=== PATIENT | male | born 1950 | race Caucasian/White ===

== ENCOUNTER 2018-11-09 14:18 | Inpatient (IN) ==
[2018-11-09] MEDS ORDERED: ZOFRAN IV ONE (15:13)
[2018-11-09] MEDS ORDERED: NS 1,000 ML IV ONE (15:13)
[2018-11-09] MEDS ORDERED: DILAUDID IV ONE (15:47)
--- NOTE | 2018-11-09 16:08 | PROVIDER DOCUMENTATION ---
HPI-General Adult - General Chief Complaint: Abdominal Pain Stated Complaint: ABD PAIN/RT SIDE Time Seen by Provider: 11/09/18 15:12 Source: patient Allergies/Adverse Reactions: Patient Allergies Allergy/AdvReac Type Severity Reaction Status Date / Time No Known Allergies Allergy Verified 11/09/18 17:26 Home Medications: Home Medication List Medication Instructions Recorded Confirmed Last Taken Type ATORVAstatin [Lipitor] 40 mg PO QHS 10/23/18 11/09/18 10/24/18 21:00 History Ezetimibe [Zetia] 10 mg PO DAILY 10/23/18 11/09/18 10/24/18 08:00 History Omeprazole 40 mg PO DAILY 10/23/18 11/09/18 10/25/18 06:00 History Potassium Chloride E.r. [Klor-Con] 20 meq PO DAILY 10/23/18 11/09/18 10/24/18 08 :00 History Valsartan/Hydrochlorothiazide 1 each PO DAILY 10/23/18 11/09/18 10/24/18 08:00 History [Diovan Hct 160-25 mg Tablet] Hydrocodone/Acetaminophen [Basin 1 each PO Q4H PRN PRN #30 tablet 10/25/1811/09 Unknown Rx 10-325 Tablet] - History of Present Illness -Gen Adult Nature of Presenting Problems: Pt. is 68 yom that presents with c/o epigastric pain radiating to the right upper quadrant. He reports pain upon waking this morning. Pt. states he has a known GB issue but it hasn't been removed yet. He states some nausea but denies any other symptoms. Location of Pain/Injury: reports: abdomen. denies: none, head, face, mouth, neck, chest, upper extremity, hand(s), back, pelvis, genitalia, lower extremity , feet, upper body, lower body, generalized, other Pain Radiation: reports: epigastric, RUQ. denies: no radiation, arm(s), back, buttocks, chest, feet, groin, jaw, flank (L), legs (lower), LLQ, LUQ, neck, periumbilical, flank (R), RLQ, shoulder(s), scapula, scrotal, sternal notch, suprapubic, legs (upper), urethral, vaginal, other Quality of Pain: reports: aching. denies: burning, cramping, pressure, sharp, throbbing, tightness Severity: reports: moderate. denies: mild, severe Onset/Duration: reports: abrupt, this morning Timing: reports: still present. denies: improving, gone now, constant, getting worse Context/Activities at Onset: reports: none. denies: light activity, moderate activity, vigorous activity, recent emotional stress, recent physical stress, recent trauma history, possible bad food, cold exposure, eating, out of country travel, rest, sleep, sexual activity, other Modifying Factors: improves with: nothing Associated Symptoms: reports: nausea, vomiting. denies: denies symptoms, anxiety, arm pain, back/neck pain, chest pain, constipation, cough, diaphoresis , diarrhea, dizziness, EENT symptoms, fatigue, fever/chills, genitourinary problems, headaches, heartburn, joint pain, loss of appetite, malaise, muscle aches, sinus congestion/drainage, rash, seizure, shortness of breath, sensory/ motor loss, pain with inspiration, swelling/mass in abdomen, syncope, weakness, trouble walking, other Similar Symptoms Previously?: Yes Recently seen or treated by another doctor?: No Review of Systems - Adult - REVIEW OF SYSTEMS - ADULT Constitutional: reports: no symptoms reported Eyes: reports: no symptoms reported Ears, Nose, Mouth & Throat: reports: no symptoms reported Cardiovascular: reports: no symptoms reported Respiratory: reports: no symptoms reported Gastrointestinal: reports: see HPI, abdominal pain, nausea. denies: constipation, diarrhea, frequent heartburn, vomiting Genitourinary: reports: no symptoms reported Musculoskeletal: reports: no symptoms reported Integumentary: reports: no symptoms reported Neurological: reports: no symptoms reported Psychiatric: reports: no symptoms reported Past History - Adult - PAST MEDICAL HISTORY-ADULT Review of Records: reports: Old Records Reviewed, Nursing Assessment Review, Medications Reviewed, Social history reviewed & non-contributory. Major Childhood Illnesses: reports: denies history Cardiovascular: reports: denies history Respiratory: reports: denies history Gastrointestinal: reports: denies history Obstetrical/Gynecological: reports: denies history Genitourinary: reports: denies history Musculoskeletal: reports: denies history Neurological: reports: denies history Endocrine/Immune: reports: denies history Other Conditions: reports: denies history - IMMUNIZATION STATUS Childhood Immunizations: See Nurse Assessment Flu Vaccine: See Nurse Assessment - FAMILY HISTORY Family History: reviewed, not pertinent - SOCIAL HISTORY Smoking: non-smoker Physical Exam-General - PHYSICAL EXAM-ADULT Initial Vital Signs Reviewed: Yes - CONSTITUTIONAL General Appearance: alert, moderate distress. negative: anxious, slow to respond, obtunded, combative - EYES Eyes: PERRL/EOMI, pink conjunctivae. negative: conjuctival exudate, scleral icterus, subconjunctival hemorrhage - HEAD, EARS, NOSE, MOUTH & THROAT HENMT: normocephalic/atraumatic, moist mucous membranes. negative: angioedema, frontal tenderness, maxillary tenderness - NECK Neck: non-tender, full range of motion, supple. negative: lymphadenopathy, trachial deviation, thyromegaly - RESPIRATORY Respiratory: lungs clear, normal breath sounds. negative: crackles, rales, rhonchi, stridor, wheezing - CARDIOVASCULAR Cardiovascular: normal peripheral pulses, regular rate, rhythm, no edema. negative: extra beats, friction rub, irregularly irregular - GASTROINTESTINAL (ABDOMEN) Abdominal Exam: normal bowel sounds, guarding, tenderness. negative: rigid, rebound, hernia, mass - LYMPHATIC Lymphatic: no adenopathy. negative: axilla node tender, cervical node tenderness - MUSCULOSKELETAL Back Exam: normal inspection, no CVA tenderness, no vertebral tenderness. negative: decreased range of motion, swelling, vertebral tenderness Extremity: normal range of motion, non-tender, normal gait, normal inspection. negative: deformity, erythema, inflammation, swelling, tenderness Peripheral Pulses: radial (R): 2+, radial (L): 2+ - SKIN Integumentary: normal color, normal turgor, diaphoresis. negative: cyanosis, decubitus, erythema, jaundice, pallor, warm - NEUROLOGIC Neurologic: grossly normal, no motor/sensory deficits. negative: aphasia, facial droop, focal weakness, motor weakness, sensory deficit - PSYCHIATRIC Psych/Mental Status: normal mood/affect, normal thought content, normal thought process, oriented x 3. negative: anxious, paranoid, tearful Progress - PLAN OF CARE/RESULTS Progress/Plan/Lab Results: Vital Signs - 8 hr 11/09/18 15:17 Temperature 98.0 F Pulse Rate 74 Respiratory Rate 22 Blood Pressure 158/78 O2 Sat by Pulse Oximetry 96 Orders Category Date Time Status Saline Loc NOW Care 11/09/18 15:13 Active US GB < RUQ (LIMITED) [US] Stat Exams 11/09/18 15:14 Ordered CBC WITH ELECTRONIC DIFF [HEME] Stat Lab 11/09/18 15:13 Uncollected COMPREHENSIVE METABOLIC PANEL [CHEM] Stat Lab 11/09/18 15:13 Uncollected LIPASE [CHEM] Stat Lab 11/09/18 15:13 Uncollected URINALYSIS W/POSS RFLX CULT [URINALYSIS] Stat Lab 11/09/18 15:09 Uncollected 0.9% Sodium Chloride Inj [Ns] 1,000 ml Med 11/09/18 15:13 Active IV 999 mls/hr Hydromorphone [Dilaudid] Med 11/09/18 15:47 Discontinued 1 mg IV NOW ONE Ondansetron [Zofran] Med 11/09/18 15:13 Discontinued 4 mg IV NOW ONE Laboratory Tests 11/09/18 11/09/18 11/09/18 18:10 18:10 20:13 WBC 16.67 H RBC 4.96 Hgb 14.2 Hct 43.5 MCV 87.7 MCH 28.6 MCHC 32.6 L RDW Std Deviation 12.8 Plt Count 388 MPV 8.9 Immature Gran % (Auto) 0.1 Neut % (Auto) 93.3 H Lymph % (Auto) 3.4 L [place] % (Auto) 3.1 Eos % (Auto) 0.0 Baso % (Auto) 0.1 Immature Gran # (Auto) 0.02 Neut # (Auto) 15.56 H Lymph # (Auto) 0.56 L [place] # (Auto) 0.52 Eos # (Auto) 0.00 Baso # (Auto) 0.01 Sodium 138 Potassium 4.3 Chloride 99 Carbon Dioxide 26 Anion Gap 13 BUN 22 Creatinine 1.0 Estimated GFR/1.73 m2 > 60 BUN/Creatinine Ratio 22 Glucose 120 H Calculated Osmolality 280 Calcium 9.7 Total Bilirubin 0.59 AST 124 H ALT 149 H Alkaline Phosphatase 155 H Total Protein 7.4 Albumin 4.5 Globulin 2.9 Albumin/Globulin Ratio 1.6 Lipase > 3000 H Urine Source CLEAN CATCH Urine Color YELLOW Urine Turbidity TURBID Urine pH 5.5 Ur Specific [place] 1.033 Urine Protein 50 A Ur Glucose (Stick) 200 A Ur Ketones (Stick) NEGATIVE Urine Blood NEGATIVE Urine Nitrite NEGATIVE Urine Bilirubin SMALL A Urobilinogen Dipstick 2 A Urine Leukocytes NEGATIVE Urine WBC (Auto) <10 Urine RBC (Auto) <10 U Epithel Cells (Auto) <10 Urine Bacteria (Auto) NEGATIVE Discussed results and plan of care with patient. Patient agrees with plan and verbalizes understanding. Result Diagrams: 11/10/18 06:57 11/10/18 06:57 - REASSESSMENT Reassessment #1 Time Reassessed: 18:15 Status: unchanged (Patient still c/o abdominal pain, epigastric, vomited once. tenderness epigastric and RUQ. willm give toradol and do CT without contrast ( no IV yet after multiple try)) Reassessment #2 Time Reassessed: 19:10 Status: improving (Patint feels better, less abd pain 2-3/10) Reassessment #3 Time Reassessed: 21:08 Status: other (Accepted by Dr. Dilshad Hoang for admission. Acute pancreatitis) - CHANGE OF SHIFT REPORT (ED Provider) Report Given and Care Transferred to:: Dr. Hoang Time of Transfer: 17:42 Items Pending: Labs, Ultrasound Results Departure - Departure Date of Disposition Decision: 11/09/18 Time of Disposition Decision: 21:08 DIAGNOSIS: Acute pancreatitis Qualifiers: Pancreatitis type: biliary Acute pancreatitis complication: unspecified Qualified Code(s): K85.10 - Biliary acute pancreatitis without necrosis or infection Disposition: ADMITTED INPATIENT 09 Certified Medical Emergency: Emergent Condition: Stable - Critical Care Note This patient required my direct & personal management of CC.: No Attestation - Physician/ ATUL Attestation Patient care was provided by Advanced Practice Provider:: Yes Advanced Practice Provider:: Kanu Avila Advanced Practice Provider documentation review:: The Mid-level provider documentation, treatment plan and medical decision making was reviewed by the physician who agrees with all treatment and medical decision making by the MLP. The physician spent face to face time with patient:: No Advanced Practice Provider documentation review:: Supervising physician onsite and consulted in the evaluation and care of this patient. The physician did not have a face to face encounter with the patient.
[2018-11-09] MEDS ORDERED: DILAUDID IM STA (17:09)
[2018-11-09] MEDS ORDERED: PHENERGAN IM ONE (17:09)
[2018-11-09] MEDS ORDERED: TORADOL IM ONE (17:54)
--- NOTE | 2018-11-09 18:52 | Diag Imaging Result Doc PS360 ---
EXAM: CT ABDOMEN/PELVIS W/O CONTRAST 11/09/2018 HISTORY: severe abdominal pain RT FLANK, RUQ, GUARDING. TECHNIQUE: This exam was performed using automated exposure control, adjustment of mA or kV according to patient size, and/or use of iterative reconstruction technique. COMMENT: There are no previous abdominal studies. Comparison of the pelvis is made with the pelvic CT of 10/28/2016. There are some mild atelectatic or fibrotic changes in the lung bases including the lower lingula. There is minimal increased density in the peripancreatic fat suggesting interstitial pancreatitis. There are small densely calcified gallstones layering dependently in the gallbladder. There is no evidence of biliary dilatation. There is no evidence of hydronephrosis or stones in the kidneys. The adrenal glands and spleen are not enlarged. There is some stool in the colon. There is no evidence of bowel obstruction or appendicitis. There is a collection of soft tissue density subadjacent to the umbilicus. This may be a result of repair of an umbilical hernia. It is likely a seroma and/or hematoma. It measures less than 4 cm in diameter. The aorta is not distended. There is no evidence of significant adenopathy. There is diverticulosis in the distal descending colon. No evidence of active diverticulitis is present. There is a left inguinal hernia containing a loop of small bowel. There is fluid within the hernia sac and there does appear to be a fat fluid level in the upper portion of the scrotum. There is a hydrocele. The proximal loop entering the hernia sac contains fecalized contents and is slightly distended. This was not present at the time the previous study of 10/29/2016. There has been internal fixation of the anterior pelvic ring. There is a threaded ely passing through the sacroiliac joints and sacrum. IMPRESSION: 1. Recurrent left inguinal hernia. 2. Mild pancreatitis. 3. Bibasilar subsegmental atelectasis. Electronically signed by Rachid Menezes 11/09/2018 6:50 PM
--- NOTE | 2018-11-09 19:08 | Diag Imaging Result Doc PS360 ---
EXAM: US GB < RUQ (LIMITED) 11/09/2018 HISTORY: RUQ pain TECHNIQUE: Right upper quadrant ultrasound. COMMENT: The pancreas is obscured. The liver is unremarkable in appearance. There is antegrade flow in the portal vein. The gallbladder is not distended. There are apparent small stones layering dependently in the gallbladder with shadowing, as recently reported on CT. There is no sonographic Collazo sign. The visualized portions of the aorta and inferior vena cava are within normal limits. There is no evidence of biliary dilatation with common bile duct measuring less than 6 mm. The right kidney is without evidence of hydronephrosis or mass. There are no abnormal fluid collections. IMPRESSION: Cholelithiasis. Electronically signed by Rachid Menezes 11/09/2018 7:06 PM
[2018-11-09 20:15] LABS: BASO# 0.01 X1000 (0.0-0.2); BASO% 0.1 % (0.0-0.8); HEMATOCRIT 43.5 % (42.0-52.0); HEMOGLOBIN 14.2 g/dL (14.0-18.0); IMM GRAN# 0.02 X1000 (0.0-0.04); IMM GRAN% 0.1 % (0.0-0.5); LYMPH# 0.56 X1000 (1.2-3.4); LYMPH% 3.4 % (20.5-51.1); MCH 28.6 PG (27-31); MCHC 32.6 g/dL (33-37); MCV 87.7 FL (81-99); MONO# 0.52 X1000 (0.11-0.59); MONO% 3.1 % (1.7-9.3); MPV 8.9 FL (7.4-10.4); NEUT# 15.56 X1000 (1.4-6.5); NEUT% 93.3 % (42.2-75.2); PLT 388 X1000 (130-400); RBC 4.96 XMIL (4.7-6.1); RDW 12.8 % (11.5-14.5); WBC 16.67 X1000 (4.8-10.8)
[2018-11-09 20:23] LABS: URINE SOURCE CLEAN CATCH
[2018-11-09 20:39] LABS: BILIRUBIN URINE SMALL (NEGATIVE); BLOOD URINE NEGATIVE (NEGATIVE); COLOR YELLOW; GLUCOSE URINE 200 mg/dL (NEGATIVE); KETONE URINE NEGATIVE (NEGATIVE); LEUKOCYTES URINE NEGATIVE (NEGATIVE); NITRITE URINE NEGATIVE (NEGATIVE); PH URINE 5.5; PROTEIN URINE 50 mg/dL (NEGATIVE); SP GRAVITY URINE 1.033; TURBIDITY URINE TURBID (CLEAR); UROBILINOGEN URINE 2 mg/dL (NORMAL)
[2018-11-09 20:40] LABS: UR EPITHELIAL CELLS <10 /HPF (<10); URINE BACTERIA NEGATIVE /HPF; URINE RBC <10 /HPF (<10); URINE WBC <10 /HPF (<10)
[2018-11-09 20:41] LABS: AGAP 13; ALB/GLOB RATIO 1.6; ALBUMIN 4.5 g/dL (3.5-5.0); ALKALINE PHOSPHATASE 155 U/L (32-122); BUN 22 mg/dL (8-22); CALCIUM 9.7 mg/dL (8.8-10.2); CHLORIDE 99 mmol/L (98-107); COSMO 280; ESTIMATED GFR > 60; GLUCOSE 120 mg/dL (70-104); GOT 124 U/L (10-34); GPT 149 U/L (10-44); POTASSIUM 4.3 mmol/L (3.5-5.1); SODIUM 138 mmol/L (136-145); TCO2 26 mmol/L (25-35); TOTAL BILIRUBIN 0.59 mg/dL (0.20-1.00); TOTAL PROTEIN 7.4 g/dL (6.3-8.3)
[2018-11-09 21:00] LABS: LIPASE > 3000 U/L (13-60)
[2018-11-09] MEDS ORDERED: MORPHINE IV ONE (22:17)
--- NOTE | 2018-11-09 23:49 | HISTORY AND PHYSICAL ---
PRIMARY CARE PHYSICIAN: Dr. Hernandez. CHIEF COMPLAINT: Abdominal pain. HISTORY OF PRESENTING ILLNESS: A 68-year-old male with a history of hypertension, hyperlipidemia and GERD, who had presented to emergency department with a 1-day history of worsening right upper quadrant pain. Patient states the pain was about a 10/10 and he was nauseated. He apparently was seeing Surgery outpatient and was scheduled to have a HIDA scan, but he states that he could not wait. The pain was worsening. He was evaluated the emergency department. He had an ultrasound done which did show cholelithiasis and also he had a CT done which did show pancreatitis with a lipase of over 3000. Due to his presenting symptoms, he will require admission for further management. At the time of my examination, he had denied any headache, fever, chills, chest pain, shortness of breath, hemoptysis or weight changes, but complained of excruciating right upper quadrant pain. PAST MEDICAL HISTORY: Hypertension, hyperlipidemia, GERD. PAST SURGICAL HISTORY: Hernia repair, pelvic reconstructive surgery. ALLERGIES: No known drug allergies. CURRENT MEDICATIONS: Include Diovan HCT 160/25 mg p.o. daily, Mobic 15 mg p.o. daily, Zetia 10 mg p.o. daily, atorvastatin 40 mg p.o. daily, omeprazole 40 mg p.o. daily, KCl ER 20 mg p.o. daily. SOCIAL HISTORY: He denies any history of smoking, alcohol or illicit drug use. FAMILY HISTORY: No history of coronary artery disease. REVIEW OF SYSTEMS: Fourteen point review of systems as listed in HPI. Other systems negative. PHYSICAL EXAMINATION: GENERAL: Cooperative, friendly male. He is resting more comfortably now. VITAL SIGNS: Temperature 98.0 degrees, pulse 74, respirations 22, blood pressure 158/78. HEENT: Atraumatic, normocephalic. Extraocular movements intact. PERRLA. NECK: Supple. CHEST: Clear to auscultation. CARDIOVASCULAR: Regular rate and rhythm. ABDOMEN: Soft. Right upper quadrant tenderness. EXTREMITIES: No edema. NEUROLOGIC: He is awake, alert, oriented x3. GENITOURINARY: No bladder distention. SKIN: Warm. LABORATORIES AND STUDIES: Lipase greater than 3000, AST 124, ALT 149, alkaline phosphatase 155, sodium 138, potassium 4.3, chloride 99, CO2 is 26, BUN is 22, creatinine is 1.0, glucose is 120. WBC 16.67, hemoglobin 14.2 hematocrit 42.5, platelets is 388,000. Abdominal ultrasound shows cholelithiasis. CT shows mild pancreatitis. ASSESSMENT: A 68-year-old male with a history of hypertension, hyperlipidemia and gastroesophageal reflux disease, who presented to emergency department with 1-day history of worsening right upper quadrant pain. He was evaluated in the emergency department. It was suspected he had gallstone pancreatitis. Subsequently, he will need admission for further management. 1. Abdominal pain. 2. Gallstone pancreatitis. 3. Hypertension. 4. Gastroesophageal reflux disease. PLAN: 1. We will admit patient to medical floor with telemetry. 2. We will give patient adequate pain control, antiemetics, IV fluids. 3. We will consult General Surgery. 4. Monitor blood pressure closely. 5. Put patient on DVT prophylaxis with SCDs. 6. Continue to follow, and reassess and make further recommendations based on patient's clinical course. cc: Dilshad Hoang MD
[2018-11-10] MEDS ORDERED: NS 1,000 ML IV SCH (00:22)
[2018-11-10] MEDS ORDERED: SODIUM CHLORIDE 0.9% INJ PRN (00:22)
[2018-11-10] MEDS ORDERED: PHENERGAN IV PRN (00:22)
[2018-11-10] MEDS: DILAUDID IV PRN ×4 (00:39→23:31)
[2018-11-10] MEDS: ZOSYN 3.375 GM in NS 50 ML IV SCH ×4 (00:42→19:54)
[2018-11-10 07:24] LABS: BASO# 0.01 X1000 (0.0-0.2); BASO% 0.1 % (0.0-0.8); EOS# 0.02 X1000 (0.0-0.7); EOS% 0.2 % (0.0-10.0); HEMATOCRIT 38.8 % (42.0-52.0); HEMOGLOBIN 12.6 g/dL (14.0-18.0); IMM GRAN# 0.02 X1000 (0.0-0.04); IMM GRAN% 0.2 % (0.0-0.5); LYMPH# 1.13 X1000 (1.2-3.4); LYMPH% 11.5 % (20.5-51.1); MCH 28.9 PG (27-31); MCHC 32.5 g/dL (33-37); MONO# 0.88 X1000 (0.11-0.59); MPV 9.3 FL (7.4-10.4); NEUT# 7.74 X1000 (1.4-6.5); PLT 312 X1000 (130-400); RBC 4.36 XMIL (4.7-6.1); RDW 12.8 % (11.5-14.5)
[2018-11-10 07:43] LABS: AGAP 10; BUN 26 mg/dL (8-22); CALCIUM 8.8 mg/dL (8.8-10.2); CHLORIDE 103 mmol/L (98-107); COSMO 284; ESTIMATED GFR > 60; GLUCOSE 99 mg/dL (70-104); POTASSIUM 4.5 mmol/L (3.5-5.1); SODIUM 140 mmol/L (136-145); TCO2 27 mmol/L (25-35)
--- NOTE | 2018-11-10 07:44 | GENERAL SURGERY CONSULTATION ---
DATE: 11/10/2018 REQUESTING PHYSICIAN: Leidyist. REASON FOR CONSULTATION: Consult concerning pancreatitis. HISTORY OF PRESENT ILLNESS: A 68-year-old gentleman with a history of hypertension, hyperlipidemia, gastroesophageal reflux disease, who presented to the emergency department with worsening right upper quadrant pain. I had seen him in the office a week ago after a postoperative visit from an incisional hernia down his pelvis and an umbilical hernia repair. Clinically, he was doing well at that time, and was not having any issues. He called my office yesterday, stating he had some right upper quadrant pain. We had scheduled him for a HIDA, but the pain got really severe, so he came into the emergency department. CT scan showed that he did have cholelithiasis and pancreatitis. He likely has a recurrence of this incisional hernia. It was a very difficult hernia to repair down in his groin. Clinically, the patient is doing better now, but still has some right upper quadrant pain. PAST MEDICAL HISTORY: Includes hypertension, hyperlipidemia, and gastroesophageal reflux disease. PAST SURGICAL HISTORY: Includes recent hernia repairs and pelvic reconstruction surgery. ALLERGIES: None. HOME MEDICATIONS: Reviewed. SOCIAL HISTORY: Denies alcohol, tobacco, or illicit drugs. FAMILY HISTORY: Reviewed with patient and noncontributory. REVIEW OF SYSTEMS: A full 10 point review of systems obtained and negative as specified in HPI. PHYSICAL EXAMINATION: Vital Signs: Patient is currently afebrile. His vital signs are stable. General: No acute distress. Alert, interactive, male, looks stated age. HEENT: Normocephalic, atraumatic. Pupils equal, round, reactive to light. Mucous membranes moist. Oropharynx benign. Neck: Supple. Trachea midline. Cardiovascular: Regular rate and rhythm. Lungs: Grossly clear. Abdomen: Soft. Tender to palpation in the right upper quadrant. Some tenderness at his previous incision sites. No recurrence of his umbilical hernia. There is some swelling in his left inguinal region, where he had his incisional hernia. Extremities: Moves all extremities. Neurologic: Grossly intact. Skin: No signs of jaundice. Vascular: All extremities perfused. LABORATORY REVIEWED: CT scan independently reviewed, and Radiology report reviewed. ASSESSMENT AND PLAN: A 68-year-old with pancreatitis in the postoperative state. 1. Pancreatitis. This is likely related to gallstone pancreatitis. The difficulty is these 2 weeks out from umbilical hernia repair and an incisional hernia repair down in his groin. They both contain mesh. Any kind of surgical intervention would be difficult given the fact that he is 2 weeks out, and he has a piece of mesh. He would be high risk for contamination of the mesh, which would need to have removal of the mesh, which again would be difficult at this time. The best scenario might be to keep him NPO, [*] pancreatitis and wait some period of time before pursuing umbilical hernia repair. I discussed this with the patient. He is aware. He needs to remain in the hospital and monitored and kept on NPO. I am not opposed to having him on antibiotics given his leukocytosis. My partner, Dr. Clarke, will follow this weekend and while I am gone next week. 2. Recurrent left inguinal/incisional hernia. At this time, the hernia repair, itself, was very difficult. He had no tissue to sew to. At this time, he has had less pain with and after his hernia repair than he did prior to his hernia repair, so at this point I would just recommend monitoring it. He may need to have a truss to the area. cc: Castillo Soto MD
[2018-11-10] MEDS ORDERED: SODIUM CHLORIDE 0.9% INJ SCH (11:00)
[2018-11-10] MEDS: PROTONIX IV SCH (11:16)
[2018-11-10] MEDS: NS 1,000 ML IV SCH ×2 (11:16→19:54)
--- NOTE | 2018-11-10 11:43 | PROGRESS NOTE ---
DATE: 11/10/2018 SUBJECTIVE: Patient reports still having pain even though he is receiving 1 mg of Dilaudid every 4 hours. Denies any other complaints. OBJECTIVE: Vital Signs: Temperature 98.5 degrees, heart rate 74, respiratory rate 16, blood pressure 123/61, O2 saturation 100% on room air. General: This is a 68-year-old male, lying in bed, in no acute distress. Cardiovascular: S1, S2 heard. No murmurs, gallops, or rubs. Regular rate and rhythm. Respiratory: Clear bilaterally to auscultation. No work of breathing or using accessory muscles. Abdomen: Soft, right upper quadrant tenderness with Collazo negative. Bowel sounds present. No organomegaly. Extremities: No clubbing, cyanosis, or edema. Peripheral pulses present in both legs. Neurological: The patient is alert and oriented x3. Moves 4 extremities. LABORATORY DATA: Reviewed. The white cell count is back to normal at 9.8. ASSESSMENT AND PLAN: 1. Abdominal pain secondary to gallstone pancreatitis. General Surgery has been completed, and they mention that will be technically difficult to do a cholecystectomy considering that he had a hernia repair with mesh around. At this point, they are planning to do conservative management only. In that way, I am going to increase the doses of pain medication because patient is still hurting. We will continue with IV fluids. We will continue to monitor this patient closely and follow recommendations from General Surgery. 2. Hypertension. Blood pressure is under control. We will continue with the same management. 3. Gastroesophageal reflux disease. We will continue with Protonix. 4. Leukocytosis. There has been a suspicious for infection on admission. That is why this patient was started on Zosyn. At this point, we will continue with the same management. 5. Disposition. Following the lead from General Surgery. cc: Gregory Dietrich MD
[2018-11-11] MEDS: ZOSYN 3.375 GM in NS 50 ML IV SCH ×4 (01:32→21:44)
[2018-11-11] MEDS: NS 1,000 ML IV SCH (06:01)
[2018-11-11 07:12] LABS: BASO# 0.02 X1000 (0.0-0.2); BASO% 0.3 % (0.0-0.8); EOS# 0.06 X1000 (0.0-0.7); EOS% 0.8 % (0.0-10.0); HEMATOCRIT 37.5 % (42.0-52.0); HEMOGLOBIN 11.8 g/dL (14.0-18.0); LYMPH# 1.19 X1000 (1.2-3.4); LYMPH% 16.4 % (20.5-51.1); MCH 28.6 PG (27-31); MCHC 31.5 g/dL (33-37); MCV 90.8 FL (81-99); MONO% 8.3 % (1.7-9.3); MPV 8.9 FL (7.4-10.4); NEUT# 5.38 X1000 (1.4-6.5); NEUT% 74.2 % (42.2-75.2); PLT 266 X1000 (130-400); RBC 4.13 XMIL (4.7-6.1); RDW 12.7 % (11.5-14.5); WBC 7.25 X1000 (4.8-10.8)
[2018-11-11 07:27] LABS: C REACTIVE PROT QUANT 114.46 mg/L (0.00-5.00)
[2018-11-11 07:36] LABS: AGAP 14; ALB/GLOB RATIO 1.4; ALBUMIN 3.3 g/dL (3.5-5.0); ALKALINE PHOSPHATASE 102 U/L (32-122); BUN 18 mg/dL (8-22); CALCIUM 8.6 mg/dL (8.8-10.2); CHLORIDE 107 mmol/L (98-107); COSMO 286; CREATININE 0.8 mg/dL (0.7-1.2); ESTIMATED GFR > 60; GLUCOSE 82 mg/dL (70-104); GOT 25 U/L (10-34); GPT 56 U/L (10-44); SODIUM 143 mmol/L (136-145); TCO2 22 mmol/L (25-35); TOTAL BILIRUBIN 0.76 mg/dL (0.20-1.00); TOTAL PROTEIN 5.7 g/dL (6.3-8.3)
[2018-11-11] MEDS ORDERED: LR 1,000 ML IV SCH (08:45)
[2018-11-11] MEDS: DILAUDID IV PRN (09:24)
[2018-11-11] MEDS: LR 1,000 ML IV SCH (09:55)
--- NOTE | 2018-11-11 11:46 | PROGRESS NOTE ---
DATE: 11/11/2018 SUBJECTIVE: Mr. Garrison is admitted with gallstone pancreatitis. He has had several hernia surgeries recently performed per Dr. Soto, which include mesh. He has been treated for his pancreatitis by being n.p.o. and his lipase is quickly dropping. We will give him clear liquids today, increase his activity. We want to be careful about proceeding quickly with cholecystectomy because of his intra-abdominal mesh recently placed. cc: Cecy Clarke MD
[2018-11-11] MEDS: PROTONIX IV SCH (16:24)
[2018-11-11] MEDS ORDERED: TYLENOL PM PO ONE (21:03)
--- NOTE | 2018-11-11 23:15 | PROGRESS NOTE ---
DATE: 11/11/2018 SUBJECTIVE: This morning, Mr. Garrison refers to be doing a lot better. He is saying the abdominal pain has significantly improved. Mr. Garrison got admitted on the , mainly because of abdominal pain and some nauseation. During the workup, it was found that he has gallstone-induced pancreatitis. Of note, Mr. Garrison also had a laparoscopic robot-assisted repair of a recurrent incarcerated incisional hernia with mesh on 10/25/2014, by Dr. Soto. OBJECTIVE: Vital Signs: Blood pressure is 121/65, pulse is 81 respirations 16, temperature is 98.3 degrees. The patient was saturating 97% on room air. General: Mr. Garrison is a 68-year-old male. He is in bed. He is not in any cardiopulmonary distress. HEENT: Mucosa is pink and moist. Anicteric. Acyanotic. Neck: Supple. There was no JVD, no carotid bruit. Cardiovascular: Regular rate and rhythm. There are no murmurs, no rubs, no gallops. Respiratory System: Good air entry bilaterally. No crepitations. No rhonchi. No accessory muscle use. GI: Abdomen is soft. It is minimally tender in the right upper quadrant. There are some healed laparoscopic scars on the anterior abdominal wall. Bowel sounds were present. There is no hepatosplenomegaly. Extremities: No pedal edema. Distal pulses present. : Unremarkable. SUPPLY OFFICER: Patient is awake, alert, oriented. There is no focal neurological deficit. LABORATORY DATA: WBC 7.25, hemoglobin 11.8, platelet count of 266. Chemistry is also reviewed, completely unremarkable, except for bicarb which is 22. AST is down to 25, ALT is down to 56. C- reactive protein is 114. Lipase has almost normalized to 96. Ultrasound of the abdomen did show cholelithiasis. The CBD was [address] scan of the abdomen did show recurrent left inguinal hernia, and there is a mild pancreatitis. ASSESSMENT: 1. Gallstone-induced acute pancreatitis. Lipase is almost normalized. Symptomatology is improving. We will continue with adequate IV hydration and pain management. The patient was NPO, has been started on clear liquids by Surgery. We will continue to observe. If the patient tolerates this, then we will advance that in the morning. 2. Recent repair of recurrent incarcerated incisional hernia with mesh (laparoscopically), with robot-assist by Dr. Soto, noted. 3. Dyslipidemia. We will continue with Zetia and Lipitor. 4. Hypertension. Controlled. PLAN: In general, I think Mr. Garrison is doing fairly okay. He has been evaluated by Surgery. Because of his recent complicated hernia repair, Surgery prefers to hold off on any intra- abdominal surgery again until he is well-healed from the laparoscopic hernia repair. His pancreas numbers seem to be doing a lot better. I think we will be able to treat this more medically at this point, and have the gallbladder removed at a later date. We will follow up with further recommendations from Surgery. cc: Nuno Rodríguez MD
[2018-11-12] MEDS: ZOSYN 3.375 GM in NS 50 ML IV SCH ×2 (02:07→09:04)
[2018-11-12] MEDS: LR 1,000 ML IV SCH (06:22)
[2018-11-12 07:38] LABS: BASO# 0.02 X1000 (0.0-0.2); BASO% 0.3 % (0.0-0.8); EOS# 0.21 X1000 (0.0-0.7); EOS% 3.6 % (0.0-10.0); HEMATOCRIT 39.8 % (42.0-52.0); HEMOGLOBIN 12.8 g/dL (14.0-18.0); IMM GRAN# 0.02 X1000 (0.0-0.04); IMM GRAN% 0.3 % (0.0-0.5); LYMPH# 1.45 X1000 (1.2-3.4); MCH 28.6 PG (27-31); MCHC 32.2 g/dL (33-37); MCV 88.8 FL (81-99); MONO# 0.38 X1000 (0.11-0.59); MONO% 6.6 % (1.7-9.3); MPV 9.9 FL (7.4-10.4); NEUT# 3.71 X1000 (1.4-6.5); NEUT% 64.2 % (42.2-75.2); PLT 279 X1000 (130-400); RBC 4.48 XMIL (4.7-6.1); RDW 12.3 % (11.5-14.5); WBC 5.79 X1000 (4.8-10.8)
[2018-11-12 08:02] VITALS: BP 148/68
[2018-11-12 08:05] LABS: C REACTIVE PROT QUANT 75.94 mg/L (0.00-5.00)
[2018-11-12 08:07] LABS: AGAP 10; ALB/GLOB RATIO 0.8; ALBUMIN 2.9 g/dL (3.5-5.0); ALKALINE PHOSPHATASE 103 U/L (32-122); BUN 15 mg/dL (8-22); CALCIUM 8.3 mg/dL (8.8-10.2); CHLORIDE 109 mmol/L (98-107); COSMO 286; CREATININE 0.9 mg/dL (0.7-1.2); ESTIMATED GFR > 60; GLUCOSE 96 mg/dL (70-104); GOT 23 U/L (10-34); GPT 42 U/L (10-44); POTASSIUM 4.3 mmol/L (3.5-5.1); SODIUM 143 mmol/L (136-145); TCO2 24 mmol/L (25-35); TOTAL BILIRUBIN 0.67 mg/dL (0.20-1.00); TOTAL PROTEIN 6.4 g/dL (6.3-8.3)
--- NOTE | 2018-11-12 10:43 | PROGRESS NOTE ---
DATE: 11/12/2018 SUBJECTIVE: Mr. Raghav Garrison's lipase has returned to normal. His abdominal pain has resolved. He has tolerated liquids. I will advance his diet and I think it is okay to discharge him home. We will need to remove his gallbladder, and he is to follow up with Dr. Soto, not this coming Tuesday, but the following Tuesday. He knows to contact us with any problems in the meantime. cc: Cecy Clarke MD
[2018-11-12] MEDS: PROTONIX IV SCH (11:10)
--- NOTE | 2018-11-12 20:26 | DISCHARGE SUMMARY ---
ADMISSION DATE: 11/09/2018 DISCHARGE DATE: 11/12/2018 DISPOSITION: Home. FOLLOWUP: 1. Dr. Mary Davis. 2. Dr. Soto. CONSULTATIONS DURING THIS ADMISSION: Surgery was consulted. Patient was seen by Dr. Soto, followed up by Dr. Clarke. INVASIVE PROCEDURES DONE DURING THIS ADMISSION: None. IMAGING STUDIES OF SIGNIFICANCE: 1. Right upper quadrant ultrasound revealed cholelithiasis with CBD measuring [address] scan of the abdomen and pelvis showed recurrent left inguinal hernia, mild pancreatitis, bibasilar subsegmental atelectasis. ADMISSION DIAGNOSES: 1. Abdominal pain. 2. Gallstone pancreatitis. 3. Hypertension. 4. GERD. DIAGNOSES AT THE TIME OF DISCHARGE: 1. Gallstone-induced acute pancreatitis, improved. 2. Recent repair of recurrent incarcerated incisional hernia with mesh by Dr. Soto. 3. Dyslipidemia. 4. Hypertension, controlled. 5. GERD. DISCHARGE MEDICATIONS: 1. Zetia 10 mg daily. 2. Losartan/hydrochlorothiazide 1 tab daily. 3. Atorvastatin 40 mg p.o. at bedtime. 4. Omeprazole 40 mg daily. 5. [place] 10 p.o. q.4 p.r.n. PRESENTING COMPLAINT: Abdominal pain. HISTORY OF PRESENTING COMPLAINT: Mr. Garrison is a 68-year-old gentleman with a history of hypertension, dyslipidemia and GERD who presented to the Emergency Department because of acute onset of abdominal pain which escalated to intensity of 10/10, associated with nauseation. The patient came to the Emergency Department where he was evaluated and was found to have a lipase level over 3000. A CT scan did show mild interstitial pancreatitis. The patient was subsequently admitted for further medical care. HOSPITAL COURSE: Mr. Garrison was admitted to the medical floor, kept n.p.o., adequately hydrated and pain management. Surgery was consulted. An ultrasound of the right upper quadrant did show cholelithiasis. The patient was reviewed by Dr. Soto. Recommendation was just to treat the pancreatitis medically since patient just had a recent abdominal surgery for recurrent hernias. Over the course of the hospital stay, Mr. Garrison got much better. Abdominal pain completely resolved. No nauseation. He was able to tolerate his diet. He was evaluated by Dr. Clarke who is Dr. Soto's partner and recommended that the patient can be discharged and follow up with Dr. Soto. This morning, Mr. Garrison refers to feel a lot better. No pain. He is eating well. He is being discharged in stable condition and he will follow up with Dr. Soto. DISCHARGE PHYSICAL EXAMINATION: Vital Signs: At the time of discharge his vitals: Blood pressure is 148/68, pulse is 61, respiration is 19, temperature is 97.8. Exam: His physical exam is unremarkable. Specifically, abdominal exam reveals no pain. DISCHARGE INSTRUCTIONS: All the discharge instructions have been discussed with Mr. Garrison and he voiced understanding. TIME SPENT: Time spent for discharge was 37 minutes. cc: MD Dr. Louis Masters MD
== END 2018-11-12 11:00 | disposition home or self-care (01) | DRG 440 ==
LOC: ED 14:18 → 3N 23:46 → SUATTDRO 23:46
PROVIDERS: ATTEND Internal Medicine
CPT/HCPCS: 74176; 76705; 80048; 80053; 81001; 83690; 85025; 86140; 96372; 96374; 99285; A9270; C9113; J1170; J1885; J2270; J2543; J2550; J7030; J7120; S0164